=== PATIENT | male | born 1985 | race Caucasian/White ===

== ENCOUNTER 2023-10-05 15:15 | Emergency (ER) | payer BC ==
[2023-10-05] MEDS ORDERED: Sodium Chloride 0.9% 2.5 ML Syringe FLUSH PRN (17:11)
[2023-10-05] MEDS ORDERED: Sodium Chloride 0.9% 1,000 ML IV ONE (17:11)
[2023-10-05] MEDS ORDERED: Sodium Chloride 0.9% 10 ML Syringe FLUSH PRN (17:11)
[2023-10-05 17:36] LABS: BASOPHILS ABSOLUTE AUTO 0.07 K/uL (0.00-0.20); BASOPHILS PERCENT AUTO 0.9 % (0.0-1.0); EOSINOPHILS ABSOLUTE AUTO 0.25 K/uL (0.00-0.45); EOSINOPHILS PERCENT AUTO 3.1 % (0.0-6.0); HEMATOCRIT 48.6 % (42.0-52.0); HEMOGLOBIN 16.5 g/dL (14.0-18.0); IMMATURE GRAN ABSOLUTE AUTO 0.03 K/uL (0.00-0.05); IMMATURE GRAN PERCENT AUTO 0.4 % (0.0-0.4); LYMPHOCYTES ABSOLUTE AUTO 3.04 K/uL (1.00-4.80); LYMPHOCYTES PERCENT AUTO 37.7 % (24.0-44.0); MEAN CORPUSCULAR HEMOGLOBIN 29.8 pg (28.0-32.0); MEAN CORPUSCULAR VOLUME 87.9 fL (83.0-99.0); MEAN PLATELET VOLUME 9.8 fL (9.4-12.4); MONOCYTES ABSOLUTE AUTO 0.74 K/uL (0.00-0.80); MONOCYTES PERCENT AUTO 9.2 % (0.0-8.0); NEUTROPHILS ABSOLUTE AUTO 3.93 K/uL (1.80-7.70); NEUTROPHILS PERCENT AUTO 48.7 % (41.0-71.0); PLATELET COUNT,PLT 267 K/uL (150-400); RED BLOOD CELL COUNT 5.53 M/uL (4.52-5.90); WHITE BLOOD CELL COUNT,WBC 8.06 K/uL (3.9-11.3)
[2023-10-05 18:01] LABS: INR 0.99 (0.86-1.11)
[2023-10-05] MEDS ORDERED: Acetaminophen 325 MG Tab PO ONE (18:09)
[2023-10-05 18:25] LABS: ALBUMIN 4.3 g/dL (3.4-5.0); BILIRUBIN TOTAL 0.5 mg/dL (0.2-1.0); CARBON DIOXIDE,CO2 27.6 mmol/L (21.0-32.0); EST CRCL DRUG DOSING (CG) 94.56 mL/min; POTASSIUM,K 3.7 mmol/L (3.5-5.1); PROTEIN TOTAL,TP 8.5 g/dL (6.4-8.2)
[2023-10-05] MEDS ORDERED: Ketorolac 30 MG/ML SDV IVPUSH ONE (19:20)
[2023-10-05] MEDS ORDERED: Metoclopramide 10 MG/2 ML SDV IVPUSH ONE (19:20)
[2023-10-05] MEDS ORDERED: Cefepime 2 GM in Sodium Chloride 0.9% 50 ML IV ONE (19:28)
== END 2023-10-05 20:10 | disposition home or self-care (01) ==
LOC: MW.ED 15:15
DX: R51.9 Headache, unspecified (principal); Z88.0 Allergy status to penicillin; Z88.8 Allergy status to other drugs, medicaments and biological substances
CPT/HCPCS: 36415; 70450; 80053; 85025; 85610; 96361; 96365; 96375; 99284; A9270; J0692; J1885; J2765; J3490; J7030